=== PATIENT | male | born 1955 | race African-American/Black ===

== ENCOUNTER 2023-02-20 04:35 | Emergency (ER) | payer MEDICARE, MEDICAID ==
[~2023-02-20] VITALS: Ht 177.8 cm; Wt 111.3 kg
[2023-02-20] MEDS ORDERED: TERBUTALINE SULFATE 1MG/ML VIAL SUBCUT ONE (05:45)
[2023-02-20] MEDS ORDERED: TERBUTALINE SULFATE 1MG/ML VIAL SUBCUT NR (06:00)
[2023-02-20] MEDS ORDERED: PHENYLEPHRINE 100MCG/ML 10ML VIAL (PRIAPISM) MC NR (08:00)
[2023-02-20 09:00] VITALS: BP 163/93
[2023-02-20 10:54] LABS: BASOPHILS % 0.3 % (0.0-2.0); EOSINOPHILS % 0.9 % (0.0-5.0); HEMATOCRIT. 44.1 % (42.0-52.0); HEMOGLOBIN. 14.7 g/dL (14.0-18.0); LYMPHOCYTES % 23.4 % (20.0-50.0); MEAN CORPUSCULAR HEMOGLOBIN 29.3 pg (28.0-32.0); MEAN CORPUSCULAR VOLUME 87.9 fL (80.0-94.0); MEAN PLATELET VOLUME 7.8 fl (7.4-10.4); MONOCYTES % 5.8 % (2.0-8.0); NEUTROPHILS % 69.6 % (40.0-76.0); PLATELET 300 x1000/uL (130-400); RED BLOOD CELL COUNT 5.02 mill/uL (4.7-6.1)
[2023-02-20 11:00] LABS: CHLORIDE 108 mEq/L (98-107)
[2023-02-20 11:03] LABS: PROTHROMBIN TIME 10.7 sec (9.6-11.0)
== END 2023-02-20 11:34 | disposition home or self-care (01) ==
LOC: ER 04:35
DX: N48.30 Priapism, unspecified (principal)
CPT/HCPCS: 36415; 80053; 85025; 85610; 96372; 99283; J2370; J3105